=== PATIENT | female | born 1995 | race Caucasian/White ===

== ENCOUNTER 2017-01-04 15:22 | Emergency (ER) | payer OTHER ==
[~2017-01-04] VITALS: Ht 160 cm; Wt 63.5 kg
[2017-01-04 18:28] VITALS: BP 109/50
== END 2017-01-04 18:28 | disposition home or self-care (01) ==
LOC: ED 15:22
DX: S91.322A Laceration with foreign body, left foot, initial encounter (principal); X58.XXXA Exposure to other specified factors, initial encounter; Y93.89 Activity, other specified; Y99.8 Other external cause status; Y92.89 Other specified places as the place of occurrence of the external cause
CPT/HCPCS: 90715; J2001; Q0092

== ENCOUNTER 2017-01-06 12:37 | Emergency (ER) | payer OTHER ==
[~2017-01-06] VITALS: Ht 330.2 cm; Wt 63.0 kg
[2017-01-06 12:39] VITALS: BP 122/63
== END 2017-01-06 15:14 | disposition home or self-care (01) ==
LOC: ED 12:37
DX: S91.312D Laceration without foreign body, left foot, subsequent encounter (principal); X58.XXXD Exposure to other specified factors, subsequent encounter; Y99.8 Other external cause status; Y92.89 Other specified places as the place of occurrence of the external cause

== ENCOUNTER 2018-04-05 15:11 | Emergency (ER) | payer OTHER ==
[~2018-04-05] VITALS: Ht 160 cm; Wt 56.2 kg
[2018-04-05 15:16] VITALS: BP 97/61; Ht 160 cm; Wt 56.2 kg
== END 2018-04-05 16:49 | disposition home or self-care (01) ==
LOC: ED 15:11
DX: S93.401A Sprain of unspecified ligament of right ankle, initial encounter (principal); N39.0 Urinary tract infection, site not specified; X50.1XXA Overexertion from prolonged static or awkward postures, initial encounter; Y93.02 Activity, running; Y92.89 Other specified places as the place of occurrence of the external cause; Y99.8 Other external cause status